=== PATIENT | female | born 1960 | race Caucasian/White ===

== ENCOUNTER 2020-08-18 13:00 | Outpatient (REF) | payer MEDICARE, MEDICAID, SELFPAY ==
--- NOTE | ~2020-08-18 | CT_ITS ---
EXAMINATION: CT HEAD WITHOUT CONTRAST CLINICAL INFORMATION: Chronic tension-type headaches COMPARISON: None TECHNIQUE: Contiguous axial imaging was performed from the skull base to vertex without intravenous administration of contrast. This CT examination was performed using dose optimization techniques as appropriate, variously including the following: *Automated exposure control *Adjustment of mA and/or kV according to patient size (this includes techniques or standardized protocols for targeted exams where dose is matched to indication/reason for exam; i.e. extremities or head) *Use of iterative reconstruction technique DLP: 679 mGy-cm FINDINGS: There is no evidence of acute intracranial hemorrhage or territorial infarction. No abnormal mass effect or midline shift is seen. Renteria to white matter differentiation is well preserved. No extra-axial fluid collections are identified. There is 7 x 8 x 3 mm hypodense lesion in the deep white matter, right posterior parietal lobe on axial image 17/2. Question small lacunar infarct. The ventricles are normal in size. There is no abnormal attenuation within the brain parenchyma. The osseous structures and soft tissues are normal. The mastoid air cells and visualized portions of the paranasal sinuses are well aerated. CT/CT head/brain wo con IMPRESSION: No acute intracranial process seen. There is oval hypodensity right posterior parietal lobe deep white matter question lacunar infarct. Correlation with MRI brain can be performed.
== END 2020-08-18 13:01 | disposition home or self-care (01) ==
LOC: HO.CT 13:00
PROVIDERS: Visit Provider Psychiatry & Neurology Neurology
DX: G44.229 Chronic tension-type headache, not intractable (principal)
CPT/HCPCS: 70450

== ENCOUNTER 2024-12-24 09:39 | Outpatient (AMB) | payer MEDICARE, OTHER, MEDICAID, SELFPAY ==
--- NOTE | 2024-12-24 09:44 | MHC.OFFVIS ---
Vital Signs 12/24/24 09:51 Height 5 ft 1 in Intake Visit Reasons: Headache, CTS Director Translational Required: Yes Director Translational Name: #[id number] Allergies acetaminophen (From Percocet) Allergy (Intermediate, Verified 12/24/24 09:51) Insomnia ibuprofen Allergy (Intermediate, Verified 12/24/24 09:51) GI PAIN oxycodone (From Percocet) Allergy (Intermediate, Verified 12/24/24 09:51) Insomnia iv contrast Allergy (Intermediate, Uncoded 12/24/24 09:51) Rash TRAMADOL Allergy (Intermediate, Uncoded 12/24/24 09:51) GI PAIN Medication List - Last Reconciled 12/24/24 by Essence Fierro CNP acetaminophen-codeine 300-30 mg 1 tab PO BID PRN amitriptyline 150 mg PO BEDTIME atorvastatin 40 mg PO DAILY cyclobenzaprine 10 mg PO TID dulaglutide (Trulicity) mg subcut insulin aspart U-100 (Novolog FlexPen U-100 Insulin aspart) subcut insulin glargine (Lantus U-100 Insulin) units subcut lisinopril 20 mg PO DAILY magnesium oxide 400 mg PO DAILY nabumetone 500 mg PO BID omeprazole 20 mg PO DAILY trazodone 100 mg PO BEDTIME zolpidem 5 mg PO BEDTIME HPI Comments Details: She was doing so-so. Headaches are about the same, come and go. Head gets sensitive on side of headache. As needed medications help. Numbness in hands was better. No weakness. Started to have numbness and tingling from elbow down into fingers again in 10/2024 with electricity -type pain when doing activity that is better now. Sleep was okay, wakes a few times during the night, but able to fall back to sleep. Stress was still there, working with therapist and psychiatrist.? Gets more headaches with warmer weather. Headaches also triggered by bright lights and colder weather. As needed medication and laying down helps.? Resolution of numbness in left 4th and 5th fingers. She has chronic daily muscle tension type headaches prior to 2005. She also has chronic neck pain and stiffness related to cervical spondylosis. [facility]LY [facility] Medical History (Updated 12/24/24 @ 09:47 by Essence Fierro CNP) Carpal tunnel syndrome, bilateral upper limbs Carpal tunnel syndrome Breast cancer Ulnar neuropathy at elbow Stroke Insomnia HX: breast cancer Hypercholesteremia Migraines Depression Diabetes Fibromyalgia Osteoarthritis of lumbar spine GERD (gastroesophageal reflux disease) Cervical osteoarthritis Hypertension History of cardioembolic cerebrovascular accident (CVA) Surgical History (Updated 04/05/22 @ 07:20 by Kirstian Haines LPN) History of cholecystectomy Abnormal colonoscopy H/O tubal ligation History of lumpectomy of left breast Family History (Updated 04/05/22 @ 07:18 by Kristian Haines LPN) Mother Hypertension Diabetes CAD (coronary artery disease) Breast cancer Arthritis Father Arthritis Myocardial infarct Stomach cancer Bone cancer Social History (Updated 04/05/22 @ 07:14 by Kristian Haines LPN) Alcohol intake: never Patient Tobacco Use Status: Never used Tobacco Results Reviewed Results Reviewed: 11/03/24 NCV/EMG UE Early right and a mild left Carpal tunnel syndrome in the upper extremities. Normal EMG in the left C5-T1 innervated muscles. Assessment & Plan Assessment & Plan (1) Chronic tension type headache: Code(s): G44.229 - Chronic tension-type headache, not intractable Category: Medical Qualifiers: Intractability: not intractable Qualified Code(s): G44.229 - Chronic tension-type headache, not intractable Plan: Continue amitriptyline 150mg 1 tablet at bedtime Continue acetaminophen-codeine #3 300-30mg 1-2 tablets as needed for headache q12h #60 for 30 days Continue cyclobenzaprine 10mg 1 tablet as needed for pain three times a day Continue nabumetone 500mg 1 tablet as needed for headache twice a day #60 for 30 days (2) Carpal tunnel syndrome, bilateral upper limbs: Code(s): G56.03 - Carpal tunnel syndrome, bilateral upper limbs Category: Medical Plan: NCV/EMG results reviewed. No symptoms at this time. May use wrist splints at night as needed if symptoms occur in the future. (3) Stroke: Code(s): I63.9 - Cerebral infarction, unspecified Category: Medical Qualifiers: CVA mechanism: unspecified Qualified Code(s): I63.9 - Cerebral infarction, unspecified Plan . Medications: New acetaminophen-codeine 300-30 mg 1 tab PO BID PRN 60 tabs 2RF pain, headache 30 days Coding Level of Care Code Est Pt Level 4 (62662) Diagnoses Chronic tension-type headache, not intractable G44.229 Intractability: not intractable Carpal tunnel syndrome, bilateral upper limbs G56.03 Cerebrovascular accident (CVA), unspecified mechanism I63.9 CVA mechanism: unspecified
--- OUTSIDE RECORDS SUMMARY | 2024-12-24 10:17 | XMS_ITS | Clinical Summary ---
Author Organization [address] Address [address] [place] [phone] Phone Care Team Providers Care Toll Repairer Central Office Name Role Phone Tracey Freitas MD Primary Care Prov ider Allergies Active Allergy Reactions Criticality Noted Date Comments Ibuprofen 03/09/2005 G.I. UPSET Iodinated Contrast Media Itching,Rash 7 Naproxen 04/23/2005 G.I. PAIN Oxycodone-Acetaminophen Itching 03/09/2005 INSOMNIA Tramadol Hcl 04/23/2005 G.I. PAIN Medications alcohol swabs (Alcohol Prep Pads) pads, medicated 1 each by Not Applicable route. 6 Active ammonium lactate (AMLACTIN) 12 % cream Apply topically. 1 Active atorvastatin (LIPITOR) 40 mg tablet Take 1 tablet (40 mg total) by mouth 1 (one) time each day. 4 Active diclofenac (VOLTAREN) 1 % topical gel Apply topically 3 (three) times a day if needed (pain). 4 Active hydrOXYzine HCL (ATARAX) 25 mg tablet Take 1 tablet (25 mg total) by mouth at bedtime as needed for itching. 4 Active escitalopram (Lexapro) 20 mg tablet Take 1 tablet (20 mg total) by mouth 1 (one) time each day. 7 Active magnesium oxide (MAG-OX) 400 mg (241.3 elemental magnesium) tablet Take 1 tablet (400 mg total) by mouth 1 (one) time each day. 4 Active nystatin-triamc inolone (MYCOLOG II) ointment Apply topically. 4 Active senna (SENOKOT) 8.6 mg tablet Take 1 tablet (8.6 mg total) by mouth 1 (one) time each day. 3 Active traZODone (DESYREL) 100 mg tablet 4 Active zolpidem (AMBIEN) 10 mg tablet Take 1 tablet (10 mg total) by mouth at bedtime as needed. 4 Active acetaminophen (TYLENOL) 500 mg capsule PRN Active DICLOFENAC SODIUM TOP Diclofenac Sodium 1 % Cream Apply 1 Units topically 3 times daily as needed (pain). Active insulin lispro (HumaLOG U-100 Insulin) 100 unit/mL injectionIndica tions:Type 2 diabetes mellitus with microalbuminuri a, with long-term current use of insulin ([facility] V24, [facility] V28) -Administer within 15 minutes of a mealINJECT 6-8 UNITS INTO THE SKIN 3 TIMES DAILY (WITH MEALS). 10 mL 5 5 Active Trulicity 1.5 mg/0.5 mL pen injector injectionIndica tions:Type 2 diabetes mellitus with microalbuminuri a, with long-term current use of insulin ([facility] V24, [facility] V28) INJECT 0.5 ML (1.5 MG TOTAL) UNDER THE SKIN EVERY 7 (SEVEN) DAYS 2 mL 4 5 Active blood-glucose meter kit To check sugars 4 times a day E11.9 1 each 5 Active FreeStyle Test test strip To check sugars 4 times a day E11.9 400 each 2 5 Active freestyle 28 gauge lancets To check sugars 4 times a day E11.9 400 each 2 5 Active omeprazole (PriLOSEC) [address] capsule TAKE 1 CAPSULE BY MOUTH DAILY. 30 capsule 5 Active insulin syringe-needle U-100 (Ultracare Insulin Syringe) 1 mL 31 gauge x 5/16 syringeIndicati ons:Type 2 diabetes mellitus with microalbuminuri a, with long-term current use of insulin ([facility] V24, [facility] V28) USE DIRECTED FOUR TIMES DAILY 100 each 3 5 Active aspirin 81 mg EC tablet TAKE 1 TABLET BY MOUTH DAILY. 30 tablet 5 Active lisinopriL (PRINIVIL,ZESTR IL) 20 mg tablet TAKE 1 TABLET BY MOUTH DAILY. 30 tablet 1 5 Active insulin glargine (Lantus U-100 Insulin) 100 unit/mL injectionIndica tions:Type 2 diabetes mellitus with microalbuminuri a, with long-term current use of insulin ([facility] V24, [facility] V28) INJECT 40 UNITS UNDER THE SKIN AT BEDTIME. 10 mL 1 5 Active Active Problems Problem Noted Date Diagnosed Date Class 2 severe obesity due t o excess calories with serious comorbidity and body mass index (BMI) of 36.0 to 36.9 in adult ([facility] V24, [facility] V28) 04/23/2024 Common migraine 04/23/2024 Type 2 diabetes mellitus wit h microalbuminuria, with long-term current use of insulin ([facility] V24, [facility] V28) 04/23/2024 Lichen sclerosus 10/08/2022 Overview (04/16/2024): Last Assessment & Plan: Reviewed findings with patient. Improved. She does have a small fissure. Encouraged keep her sugars well controlled and avoid irritating foods. I reviewed the importance of regular maintenance topical steroid use to prevent symptoms, further scarring, and squamous cell cancer of the vulva. I also explained the importance of regular follow up to ensure she has no evidence of precancerous or cancerous changes and that she is not having side effects from her medication. I reviewed areas of application and amount of medication to use. She will return for AG. Lichen simplex chronicus 10/08/2022 Overview (04/16/2024): Last Assessment & Plan: Almost resolved, but symptoms not yet optimally controlled. Encouraged to continue Mycolog, use Vaseline as many times as needed throughout the day and try to add hydroxyzine in the evenings to avoid itch and help her sleep without scratching. She was encouraged to continue to avoid foods that make her sx worse, likely by increasing her blood sugars. Insomnia 08/17/2021 History of 2019 novel coronavirus disease (COVID -19) 08/31/2020 Stroke ([facility] V24, [facility] V28) 12/06/2017 Overview (04/16/2024): Multifocal acute infarcts of right frontal and right occipital lobes on brain MRI of 11/18/2017 HTN (hypertension) 11/22/2015 Overview (04/16/2024): Last Assessment & Plan: Referredto PCP for tighter control. Cervical osteoarthritis 10/16/2011 GE reflux 12/19/2007 Overview (04/16/2024): Upper GI endoscopy 05/13/2008, small hiatal hernia, no evidence of mucosal lesions or reflux esophagitis on treatment with omeprazole 20 mg twice a day. Osteoarthritis of lumbar spine 10/31/2007 Fibromyalgia 01/07/2007 Overview (04/16/2024): Onset 2004, more symptoms after chemoRx for breast Ca Depression 12/13/2006 Migraine without aura 07/31/2006 Overview (04/16/2024): IMO update Proteinuria 06/04/2006 Pure hypercholesterolemia 06/04/2006 Encounters Date Type Department Care Team Description 10/08/2024 10:00 AM EDT Office Visit Endocrinology [address] [phone] Heather Baig PA Type 2 diabetes mellitus with microalbuminuria, with long-term current use of insulin ([facility] V24, [facility] V28) (Primary Dx); Proteinuria, unspecified type; Pure hypercholesterolemia; Primary hypertension from Last 3 Months Immunizations Name Administration Dates Next Due H1N1 Inj Preservative Free 07/06/2009 Influenza Quadravalent, MDCK , 0.5ml, preservative free (Flucelvax) 6mo and older 02/28/2023,04/27/2022,03/13/2021,03/10 Influenza Quadravalent, MDCK , 0.5ml, with preservative (Flucelvax) 6mo and older 02/05/2017 Influenza trivalent, 0.5mL, preservative free (Fluarix; FluLaval; Fluzone) ages 6mo and older (Afluria) 3 years and older 03/27/2021,03/27/2020,04/15/2019,02/27,05/25/2015,05/13/2014,03/13/2013 ,05/03/2012,03/16/2011,02/09/2009,03/04,05/07/2007 Influenza, Unspecified 06/11/2006,2005,05/01/2006,04/11,03/20/2006,03/06/2006,02/06/2006 ,01/23/2006 Moderna SARS-CoV-2 COVID-19, mRNA, LNP-S, preservative free 04/04/2021,10/06/2020 Pneumococcal polysaccharide 23 valent (Pneumovax 23) 2yo and older 07/15/2013 Td Tetanus diptheria (Tdvax) 7yo and older 07/30/2022,04/23/2005 Tdap Tetanus diptheria acell ular pertussis (Boostrix; Adacel) 7yo and older 07/09/2012 Surgical History Surgery Date Site/Laterality Comments CHOLECYSTECTOMY PROCEDURE: HISTORICAL CHOLECYSTECTOMY COLONOSCOPY 01/10/2005 PROCEDURE: HISTORICAL COLONOSCOPY; COMMENT: WNL, NEXT CN DUE 2014 BREAST LUMPECTOMY 11/2005 PROCEDURE: HISTORICAL BREAST LUMPECTOMY; COMMENT: T1 N0 - left breast cancer s/p left lumpectomy, sentinel node biopsy TUBAL LIGATION PROCEDURE: HISTORICAL TUBAL LIGATION OTHER SURGICAL HISTORY 12/2012 PROCEDURE: MAMMOGRAM ESOPHAGOGASTRODUODENOSCOPY 05/13/2008 PROCEDURE: [place] ESOPHAGOGASTRODUODENOSCOPY TRANSORAL DIAGNOSTIC; COMMENT: small hiatal hernia, no esophagitis. COLONOSCOPY 2014 PROCEDURE: HISTORICAL COLONOSCOPY; COMMENT: 5 mm polyps x 2: tubular adenoma x2. BREAST BIOPSY PROCEDURE: BX BREAST; PERC NEEDLE CORE W/IMAG GUID; COMMENT: lt breast ca 2005 BREAST BIOPSY PROCEDURE: BX BREAST; PERC NEEDLE CORE W/IMAG GUID; COMMENT: rt. breast bx.-benign COLONOSCOPY 10/27/2020 PROCEDURE: HISTORICAL COLONOSCOPY; COMMENT: Diminutive polyps x3: tubular adenomas x 3. BREAST BIOPSY 03/26/2023 Left PROCEDURE: BX BREAST; PERC NEEDLE CORE W/IMAG GUID; COMMENT: BENIGN BREAST TISSUE WITH DENSE HYALINIZED FIBROUS SCAR, FAT NECROSIS Medical History Medical History Date Comments Hemorrhage of rectum and anus 11/27/2004 DX :Hemorrhage of rectum and anus Pure hypercholesterolemia 06/04/2006 DX:Pur e hypercholesterolemia Proteinuria 06/04/2006 DX:Proteinuria Depressive disorder, not els ewhere classified 12/13/2006 DX:Depressive disorder, not elsewhere classified Myalgia and myositis, unspecified 01/07/2007 DX:Myalgia and myositis, unspecified Osteoarthritis of lumbar spine 10/31/2007 D X:Osteoarthritis of lumbar spine Type II or unspecified type diabetes mellitus without mention of complication, not stated as uncontrolled 06/04/2006 DX:Type II or unspecified ty pe diabetes mellitus without mention of complication, not stated as uncontrolled Type II or unspecified type diabetes mellitus with renal manifestations, not stated as uncontrolled(250.40) ([facility] V24, [facility] V28) 01/07/2007 DX:Type II or unspecified t ype diabetes mellitus with renal manifestations, not stated as uncontrolled(250.40) ([facility]) GE reflux 12/19/2007 DX:GE reflux; CO MMENT: Upper GI endoscopy 05/13/2008, small hiatal hernia, no evidence of mucosal lesions or reflux esophagitis on treatment with omeprazole 20 mg twice a day. Type II or unspecified type diabetes mellitus with renal manifestations, not stated as uncontrolled(250.40) ([facility] V24, [facility] V28) 01/07/2007 DX:Type II or unspecified t ype diabetes mellitus with renal manifestations, not stated as uncontrolled(250.40) ([facility]) Osteoarthritis of lumbar spine 10/31/2007 D X:Osteoarthritis of lumbar spine Malignant neoplasm of breast (female), unspecified site 04/02/2006 DX:Malignant neoplasm of br east (female), unspecified site; COMMENT: left lumpectomy 12/06, chemo 12/06-06/09 HTN (hypertension) 11/22/2015 DX:HTN (hyper tension) History of COVID-19 09/04/2022 DX:History o f COVID-19 Family History Medical History Relation Name Comments Cataracts Brother 1 Stomach cancer Brother 2 Other: bone cancer Brother 3 Arthritis Father Heart attack Father 55 Other: heart disease Father heart a ttack Other: Other Maternal Grandfather alcohol related; - age 74 Other: heart disease Maternal Grandmother at age 84 Arthritis Mother 70's Breast cancer Mother 70's at age 82 Cataracts Mother 70's Hypertension Mother 70's diabetes, CAD Other: etoh related Paternal Grandfather - age 60 Other: Other Paternal Grandmother ? age a t , ? cause Arthritis Sister Suicide Attempts Uncle paternal un rosemary Colon cancer Neg Hx Ovarian cancer Neg Hx Pancreatic cancer Neg Hx Prostate cancer Neg Hx Uterine cancer Neg Hx Relation Name Status Comments Brother 1 Brother 2 Brother 3 Father Maternal Grandfather Maternal Grandmother Mother 70's Paternal Grandfather Paternal Grandmother Sister Uncle Social History Tobacco Use Types Packs/Day Years Used Date Smoking Tobacco: Never Smokeless Tobacco: Never Tobacco Cessation:Counseling Given: Not Answered Alcohol Use Standard Drinks/Week Comments No 0 (1 standard drink = 0.6 oz pur e alcohol) Comments No Sex and Gender Information Value Date Recorded Sex Assigned at Not on file Legal Sex Female 9:06 AM EST Gender Identity Not on file Sexual Orientation Not on file Obstetrics History Last Filed Vital Signs Vital Sign Reading Time Taken Comments Blood Pressure 138/78 10/08/2024 10:06 AM EDT Pulse 92 10/08/2024 10:06 AM EDT Temperature 35.9 C (96.6 F) 10/08/2024 10:06 AM EDT Respiratory Rate 16 10/08/2024 10:06 AM EDT Oxygen Saturation 93% 10/08/2024 10:06 AM EDT Inhaled Oxygen Concentration - - Weight 88.1 kg (194 lb 3.2 oz) 10/08/2024 10:06 AM EDT Height 153.7 cm (5' 0.5 ) 10/08/2024 10:06 AM ED T Body Mass Index 37.3 10/08/2024 10:06 AM EDT Plan of Treatment Upcoming Encounters Date Type Department Care Team (Late st Contact Info) Description 01/08/2025 11:15 AM EDT Office Visit Adult Medicine [address], [place] [phone] Tracey Freitas MD [address] [place] [address] 03/05/2025 11:00 AM EDT Appointment Radiology Department - [address] [phone] 04/27/2025 10:00 AM EST Office Visit Endocrinology - [address] [phone] Heather Baig PA [address] [place] [address] Health Maintenance Due Date Last Done Comments Diabetes: Annual Foot Exam 11/13/1969 Zoster Vaccines (1 of 2) 11/13/1978 Pneumococcal Vaccine: 50+ Years (2 of 2 - PCV) 07/15/2014 07/15/2013 RSV Immunization Adult Patients (1 - Risk 60-74 years 1-dose series) 2019 Medicare Annual Wellness Visit 05/12/2022 Osteoporosis Screening (Bone Density Screening) 05/12/2022 Social Influencers of Health Screening 05/12/2022 COVID-19 Vaccine ( season) 2024 05/16/2021, 04/04/2021, 10/06/2020, Additional history exists Depression Screening 06/03/2024 10/02/2023 Falls Risk Assessment 11/13/2024 Influenza Vaccine (#1) 2025 , 02/28/2023, 04/27/2022, Additional history exists Diabetes: Annual Retina Eye Exam 02/20/2025 02/21/2024, 02/21/2024 Diabetes: Annual Urine Albumin-Creatinine Ratio (uACR) 03/04/2025 03/04/2024 Diabetes: Blood Sugar Control Test (HGBA1C) 04/10/2025 10/08/2024, 03/04/2024, 03/04/2024, Additional history exists Diabetes: Annual GFR (Glomerular Filtration Rate) 10/08/2025 10/08/2024, 03/04/2024, 03/04/2024 Hypertension/CHF/CAD Annual BMP Blood Test 10/08/2025 10/08/2024, 03/04/2024, 03/04/2024 Colorectal Cancer Screening: Colonoscopy 10/27/2025 10/27/2020 Breast Cancer Screening 02/17/2026 02/18/20, 02/18/2024, 03/26/2023, Additional history exists Cervical Cancer Screening: HPV 10/09/2027 10/08/2022 Cholesterol Screening (Lipid Panel) 03/04/2029 03/04/2024, 03/04/2024 DTaP,Tdap,and Td Vaccines (4 - Td or Tdap) 07/30/2032 07/30/2022, 07/09/2012, 04/23/2005 Hepatitis C Screening Completed 11/10/2012 HIB Vaccines Aged Out No longer eligi ble based on patient's age to complete this topic HPV Vaccines Aged Out No longer eligi ble based on patient's age to complete this topic Hepatitis A Vaccines Aged Out No long er eligible based on patient's age to complete this topic Hepatitis B Vaccines Aged Out No long er eligible based on patient's age to complete this topic IPV Vaccines Aged Out No longer eligi ble based on patient's age to complete this topic MMR Vaccines Aged Out No longer eligi ble based on patient's age to complete this topic Meningococcal ACWY Vaccine Aged Out N o longer eligible based on patient's age to complete this topic Meningococcal B Vaccine Aged Out No l onger eligible based on patient's age to complete this topic RSV Immunization Patients Under 20 months Aged Out No longer eligible based on patient's age to complete this topic Varicella Vaccines Aged Out No longer eligible based on patient's age to complete this topic Procedures Procedure Name Priority Date/Time Associated Diagnosis Comments COMPREHENSIVE METABOLIC PANEL Routine 10/08/2024 11:10 AM EDT Preoperative examination ACTIVATED PARTIAL THROMBOPLASTIN TIME Routine 10/08/2024 11:10 AM EDT Preoperative examination HEMOGLOBIN A1C Routine 10/08/2024 11:10 AM EDT Type 2 diabetes mellitus with microalbuminuria, with long-term current use of insulin ([facility] V24, [facility] V28) URINE ALBUMIN CREATININE RATIO Routine 03/04/2024 LIPID PANEL Routine 03/04/2024 DIABETES EYE EXAM Routine 02/21/2024 SCREENING MAMMOGRAPHY BI 2-VIEW BREAST INC CAD Routine 02/18/2024 10:18 AM EDT Personal history of malignant neoplasm of breast Encounter for screening mammogram for malignant neoplasm of breast DEPRESSION SCREENING Routine 10/02/2023 HPV Routine 10/08/2022 COLONOSCOPY Routine 10/27/2020 HEPATITIS C SCREENING Routine 11/10/2012 from Last 3 Months or Most Recently Relevant to Health Maintenance Results * Activated partial thromboplastin time (10/08/2024 11:10 AM EDT) aPTT 34.3 24.1 - 39.3 sec LAB COAGULATION METHOD 10/08/2024 12:18 PM EDT [facility] Blood Venous blood specimen / Unknown Venipuncture / Unknown 10/08/2024 11:10 AM EDT 10/08/2024 11:10 AM EDT us Tracey Freitas MD LAB BLOOD ORDERABL ES Final Result [facility] [address] [place] [address], * (ABNORMAL) Hemoglobin A1c (10/08/2024 11:10 AM EDT) Hemoglobin A1C 6.5(H) <6.5 % LAB CHEMISTRY METHOD 10/08[facility]2024 [facility] Mean Bld Glu Estim. 140 mg/dL LAB CHEMISTRY METHOD 10/08/2024 10:10 PM [facility] Blood Venous blood specimen / Unknown Venipuncture / Unknown 10/08/2024 11:10 AM EDT 10/08/2024 11:10 AM EDT Heather LUGO LAB BLOOD ORDERABLES Final Resul t [facility] [address] [place] [address], [place] [phone] * (ABNORMAL) Comprehensive metabolic panel (10/08/2024 11:10 AM EDT) Sodium 140 133 - 145 mmol/L LAB CHEMISTRY METHOD 10/08/2024 2:44 PM [facility] Potassium 4.8 3.5 - 5.5 mmol/L LAB CHEMISTRY METHOD 10/08/2024 2:44 PM [facility] Chloride 105 96 - 110 mmol/L LAB CHEMISTRY METHOD 10/08/2024 2:44 PM [facility] CO2 28 21 - 32 mmol/L LAB CHEMISTRY METHOD 10/08/2024 2:44 PM [facility] Anion Gap 7 3 - 11 LAB CHEMISTRY METHOD 10/08/2024 2:44 PM [facility] Glucose 105(H) 70 - 100 mg/dL LAB CHEMISTRY METHOD 10/08/2024 2:44 PM [facility] BUN 14 5 - 25 mg/dL LAB CHEMISTRY METHOD 10/08/2024 2:44 PM [facility] Creatinine 0.74 0.50 - 1.10 mg/dL LAB CHEMISTRY METHOD 10/08/2024 2:44 PM [facility] eGFR 90 >=60 mL/min/1. 73m2 LAB CHEMISTRY METHOD 10/08/2024 2:44 PM EDT [facility] Comment:Calculation based on the Chronic Kidney Disease Epidemiology Collaboration (CKD-EPI) equation refit without adjustment for race. BUN/Creatinine Ratio 18.9 LAB CHEMISTRY METHOD 10/08/2024 2:44 PM T [facility] Calcium 9.6 8.5 - 10.5 mg/dL LAB CHEMISTRY METHOD 10/08/2024 2:44 PM [facility] AST (SGOT) 20 10 - 42 unit/L LAB CHEMISTRY METHOD 10/08/2024 2:44 PM [facility] ALT (SGPT) 24 10 - 60 unit/L LAB CHEMISTRY METHOD 10/08/2024 2:44 PM [facility] Alkaline Phosphatase 83 42 - 121 unit/L LAB CHEMISTRY METHOD 10/08/2024 2:44 PM [facility] Total Protein 7.7 6.0 - 8.0 g/dL LAB CHEMISTRY METHOD 10/08/2024 2:44 PM [facility] Albumin 4.0 3.2 - 5.0 g/dL LAB CHEMISTRY METHOD 10/08/2024 2:44 PM [facility] Total Bilirubin 0.6 0.0 - 1.4 mg/dL LAB CHEMISTRY METHOD 10/08/2024 2:44 PM [facility] Blood Venous blood specimen / Unknown Venipuncture / Unknown 10/08/2024 11:10 AM EDT 10/08/2024 11:10 AM EDT us Tracey Freitas MD LAB BLOOD ORDERABL ES Final Result [facility] [address] [place] [address], [place] [phone] * Urine Albumin Creatinine Ratio (03/04/2024) Urine Albumin Creatinine Ratio abstracted Historical Provider HEALTH MAINTENANCE Final Result * Lipid panel (03/04/2024) LDL/HDL Ratio 4 0 - 4 Triglycerides 141 0 - 150 mg/dL Cholesterol 161 0 - 200 mg/dL HDL 43 >=40 mg/dL LDL Cholesterol 90 0 - 100 mg/dL Blood Venous blood specimen / Unknown Result [facility] Provider LAB BLOOD ORDERABLES Radha l Result * Hm Diabetes Eye Exam (02/21/2024) Diabetes: Annual Retina Eye Exam abstracted [facility] Provider HEALTH [facility] Final Result * SCREENING MAMMOGRAPHY BI 2-VIEW BREAST INC CAD (02/18/2024 10:18 AM EDT) Anatomical Region Laterality Modality Radiographic Yulisa ging 02/07/2023 3:33 PM EDT Narrative 02/18/2024 2:49 PM EDT This is a summary report. The complete report is available in the patient's medical record. If you cannot access the medical record, please contact the sending organization for a detailed fax or copy. Full field digital screening tomosynthesis mammography, reviewed with CAD and compared to previous mammograms dating back to 01/20/2020 with most recent of 03/22/2023. The breasts are composed of fatty and fibroglandular tissue. No suspicious mass, architectural distortion or suspicious calcifications are identified. There are postoperative changes of the left breast. There are 3 biopsy clips in the upper outer left breast. There is a biopsy clip in the upper right breast. IMPRESSION: : No mammographic evidence of malignancy. BIRADS 2-benign Breast density: The breasts have scattered areas of fibroglandular density. 5 year breast cancer risk assessment N/A Lifetime breast cancer risk assessment N/A Breast cancer risk category Breast cancer risk not assessed Location: [facility], [address] [place] [address], [place], [address], [phone] Procedure Note Anitra Barcenas MD - 03/18/2024 This is a summary report. The complete report is available in thepatient's medical record. If you cannot access the medical record, pleasecontact the sending organization for a detailed fax or copy. Full field digital screening tomosynthesis mammography, reviewed with Gera compared to previous mammograms dating back to 01/20/2020 with mostrecent of 03/22/2023. The breasts are composed of fatty and fibroglandulartissue. No suspicious mass, architectural distortion or suspiciouscalcifications are identified. There are postoperative changes of theleft breast. There are 3 biopsy clips in the upper outer left breast.There is a biopsy clip in the upper right breast. IMPRESSION: : No mammographic evidence of malignancy. BIRADS 2-benign Breast density: The breasts have scattered areas of fibroglandulardensity. 5 year breast cancer risk assessment N/A Lifetime breast cancer risk assessment N/A Breast cancer risk category Breast cancer risk not assessed Location: [facility], [address] [place] [address], [id number], [phone] Result [facility] Tracey Freitas MD IMG XR PROCEDURES Final Result * Depression Screening (10/02/2023) [facility] Depression Screening abstracted Result [facility] Provider HEALTH MAINTENANCE Final Result * Cervical Cancer Screening: HPV (10/08/2022) [facility] Cervical Cancer Screening: HPV normal, abstracted Result [facility] Provider HEALTH MAINTENANCE Final Result * Colonoscopy (10/27/2020) [facility] Colonoscopy no interpretation , abstracted Anatomical Region Laterality Modality Other Result [facility] Provider HEALTH MAINTENANCE Final Result * Hepatitis C Screening (11/10/2012) [facility] Hepatitis C Screening abstracted Result [facility] Provider HEALTH MAINTENANCE Final Result from Last 3 Months or Most Recently Relevant to Health Maintenance Insurance MEDICAID - [place] [employer] MEDICARE Advance Directives Documents on File Type Date Recorded Patient Hearing Aid Technician Expl anation Health Care Decision (hx) 11/19/2017 AD ESPINOZA DIRECTIVE Health Care Decision (hx) 11/19/2017 AD ESPINOZA DIRECTIVE Health Care Decision (hx) 11/19/2017 AD ESPINOZA DIRECTIVE Health Care Decision (hx) 11/19/2017 AD ESPINOZA DIRECTIVE Health Care Decision (hx) 11/19/2017 AD ESPINOZA DIRECTIVE Health Care Decision (hx) 11/19/2017 AD ESPINOZA DIRECTIVE Health Care Decision (hx) 11/19/2017 AD ESPINOZA DIRECTIVE Care Teams Toll Repairer Central Office Relationship Specialty Start Date End Date Tracey Freitas MD [address] [place] [id number] PCP - General Internal Medicine 01/08/22
--- OUTSIDE RECORDS SUMMARY | 2024-12-24 10:17 | XMS_ITS ---
Author Name [facility] Organization Unknown Care Team Organization Name Specialty Phone Email Start Date End Da te [facility] Heather Baig Primary [facility] 04/10/2022 01/20/20 24
== END 2024-12-24 10:10 | disposition home or self-care (01) ==
LOC: HO.HSM 09:40
PROVIDERS: PCP Physician Assistant Medical; Visit Provider Registered Nurse
DX: G44.229 Chronic tension-type headache, not intractable (principal); G56.03 Carpal tunnel syndrome, bilateral upper limbs; I63.9 Cerebral infarction, unspecified
CPT/HCPCS: 99214

== ENCOUNTER → 2024-12-24 09:39 | Outpatient (BNVA) | payer MEDICARE, MEDICAID, SELFPAY | PROVIDERS: PCP Physician Assistant Medical; Visit Provider Registered Nurse | DX: G44.229 Chronic tension-type headache, not intractable (principal); G56.03 Carpal tunnel syndrome, bilateral upper limbs; Z86.73 Personal history of transient ischemic attack (TIA), and cerebral infarction without residual deficits; Z79.1 Long term (current) use of non-steroidal anti-inflammatories (NSAID) | CPT/HCPCS: 99212 ==